=== PATIENT | female | born 1930 | race Caucasian/White ===

== ENCOUNTER 2017-05-02 11:16 | Inpatient (IN) | payer MEDICARE ==
[~2017-05-02] VITALS: Ht 160 cm; Wt 83.1 kg
[2017-05-02] VITALS (10 sets, daily range): BP systolic 96–134; BP diastolic 46–79
[2017-05-02] MEDS ORDERED: ONDANSETRON 2MG/ML, 2ML IVPush ONE (12:00)
[2017-05-02] MEDS ORDERED: PANTOPRAZOLE 40 MG IV IVPush ONE (12:00)
[2017-05-02] MEDS ORDERED: SODIUM CHLORIDE FLUSH 10ML SYR IVF ONE (12:00)
[2017-05-02] MEDS ORDERED: PLEASE ENTER HEIGHT AND WEIGHT AND ALLERGIES MC SCH (12:00)
[2017-05-02] MEDS ORDERED: SODIUM CHLORIDE 0.9% 1,000ML IVBOLUS ONE (12:00)
[2017-05-02] MEDS ORDERED: PLEASE ENTER ALLERGIES MC SCH ×2 (12:30)
[2017-05-02 12:33] LABS: ASPARTATE AMINO TRANSFERASE 16 U/L (15-37); BLOOD UREA NITROGEN 49 mg/dL (7-18)
[2017-05-02] MEDS ORDERED: ONDANSETRON 2MG/ML, 2ML ONE (12:34)
[2017-05-02] MEDS ORDERED: PANTOPRAZOLE 40 MG IV ONE ×2 (12:34→14:22)
[2017-05-02 12:51] LABS: IS PT STATUS REG ER OR PRE ER? YES
[2017-05-02 13:16] LABS: WHITE BLOOD COUNT 28.1 x10^3/uL (3.4-10)
[2017-05-02 13:17] LABS: DIFF TOTAL CELLS COUNTED 100 CELL DIFF
[2017-05-02 13:18] LABS: HEMATOCRIT 12.2 % (34.6-47.8); HEMOGLOBIN 3.8 g/dL (11.7-16.4)
[2017-05-02] MEDS ORDERED: LORazepam 2 MG/ML, 1ML IVPush ONE (13:30)
[2017-05-02] MEDS ORDERED: PANTOPRAZOLE 40 MG IV IVPush SCH (13:30)
[2017-05-02 13:36] LABS: ANISOCYTOSIS 1+; VERIFY COUNTS? YES
[2017-05-02 13:37] LABS: HYPOCHROMIA 1+; POLYCHROMASIA 1+
[2017-05-02] MEDS ORDERED: CELE200C PO (14:18)
[2017-05-02] MEDS: PANTOPRAZOLE 80 MG in SODIUM CHLORIDE 0.9% 100 ML IV SCH ×2 (15:21→23:30)
[2017-05-02] MEDS ORDERED: D5%-0.9% NACL 1,000 ML IV SCH (16:30)
[2017-05-02] MEDS ORDERED: LABETALOL 5MG/ML, 20ML IVPush PRN (17:00)
[2017-05-02] MEDS ORDERED: GUAIFENESIN/DM 200-20MG, 10ML UDC PO PRN (17:00)
[2017-05-02] MEDS ORDERED: CEFTRIAXONE PMX 1GM/50ML 50 ML IV SCH (17:00)
[2017-05-02] MEDS ORDERED: ONDANSETRON 2MG/ML, 2ML IVPush PRN (17:00)
[2017-05-02] MEDS ORDERED: ONDANSETRON ODT 4 MG PO PRN (17:00)
[2017-05-02 18:45] LABS: TOTAL IRON BINDING CAPACITY 208 mcg/dL (250-450)
[2017-05-02 20:44] LABS: HEMOGLOBIN 7.5 g/dL (11.7-16.4)
[2017-05-02 20:49] LABS: HEMATOCRIT 22.3 % (34.6-47.8)
[2017-05-02] MEDS: D5%-0.9% NACL 1,000 ML IV SCH (23:54)
[2017-05-03] VITALS (9 sets, daily range): BP systolic 102–129; BP diastolic 60–72
[2017-05-03] MEDS: PANTOPRAZOLE 80 MG in SODIUM CHLORIDE 0.9% 100 ML IV SCH ×2 (01:43→12:29)
[2017-05-03 04:23] LABS: PATH.CAST-FLAG NOT PRESENT; SPERM-FLAG NOT PRESENT; SRC-FLAG NOT PRESENT; XTAL-FLAG NOT PRESENT; YLC-FLAG NOT PRESENT
[2017-05-03 05:36] LABS: WHITE BLOOD COUNT 31.5 x10^3/uL (3.4-10)
[2017-05-03 05:45] LABS: HEMATOCRIT 18.5 % (34.6-47.8); HEMOGLOBIN 6.4 g/dL (11.7-16.4)
[2017-05-03 05:52] LABS: DIFF TOTAL CELLS COUNTED 100 CELL DIFF
[2017-05-03 05:54] LABS: ANISOCYTOSIS 1+; HYPOCHROMIA 1+; POLYCHROMASIA 2+; VERIFY COUNTS? YES
[2017-05-03 05:58] LABS: ASPARTATE AMINO TRANSFERASE 21 U/L (15-37); BLOOD UREA NITROGEN 48 mg/dL (7-18)
[2017-05-03 08:38] LABS: HEMOGLOBIN 7.6 g/dL (11.7-16.4)
[2017-05-03 08:39] LABS: HEMATOCRIT 22.3 % (34.6-47.8)
[2017-05-03] MEDS ORDERED: ERYTHROMYCIN 500 MG in SODIUM CHLORIDE 0.9% 100 ML IV STA (08:42)
[2017-05-03] MEDS ORDERED: FENTANYL PF 100 MCG/2ML ONE ×2 (08:46)
[2017-05-03] MEDS ORDERED: MIDAZOLAM 1 MG/ML, 5ML ONE (08:46)
[2017-05-03] MEDS ORDERED: METOCLOPRAMIDE 5 MG/ML, 2ML IV ONE (09:00)
[2017-05-03] MEDS ORDERED: SUCRALFATE 1 GM TABLET PO SCH (11:00)
[2017-05-03] MEDS: SUCRALFATE 1 GM/10 ML UDC PO SCH ×3 (11:19→21:33)
[2017-05-03] MEDS: D5%-0.9% NACL 1,000 ML IV SCH (12:25)
[2017-05-03] MEDS ORDERED: LORazepam 1MG TABLET PO PRN ×4 (16:00)
[2017-05-03] MEDS ORDERED: POTASSIUM CHLORIDE 20 MEQ, MAGNESIUM SULFATE 1 GM, THIAMINE 100 MG, MVI ADULT 10 ML in ... IV SCH (16:00)
[2017-05-03] MEDS ORDERED: LORazepam 2 MG/ML, 1ML IV PRN ×5 (16:00)
[2017-05-03] MEDS ORDERED: LORazepam 0.5MG TABLET PO PRN (16:00)
[2017-05-03] MEDS ORDERED: CEFTRIAXONE 2 GM in DEXTROSE 5% 50 ML IV SCH (16:00)
[2017-05-03] MEDS ORDERED: D5%-0.9% NACL 1,000 ML IV SCH (16:30)
[2017-05-03 17:12] LABS: HEMATOCRIT 22.4 % (34.6-47.8); HEMOGLOBIN 7.5 g/dL (11.7-16.4)
[2017-05-03] MEDS: CEFTRIAXONE 2 GM in DEXTROSE 5% 50 ML IVPB SCH (17:24)
[2017-05-03] MEDS ORDERED: AMIODARONE 900 MG in DEXTROSE 5% 482 ML IV PRN (23:30)
[2017-05-03] MEDS ORDERED: AMIODARONE 150 MG in DEXTROSE 5% 100 ML IV ONE (23:30)
[2017-05-03 23:39] LABS: HEMOGLOBIN 7.1 g/dL (11.7-16.4)
[2017-05-03 23:41] LABS: HEMATOCRIT 21.3 % (34.6-47.8)
[2017-05-03] MEDS ORDERED: FILTER 0.22 MICRON IV PRN (23:45)
[2017-05-04] MEDS ORDERED: AMIODARONE 150 MG in DEXTROSE 5% 100 ML IV ONE
[2017-05-04] MEDS ORDERED: AMIODARONE 900 MG in DEXTROSE 5% 482 ML IV PRN
[2017-05-04] MEDS: PANTOPRAZOLE 80 MG in SODIUM CHLORIDE 0.9% 100 ML IV SCH (00:27)
[2017-05-04 01:43] VITALS: BP 102/58
[2017-05-04 01:57] VITALS: BP 106/69
[2017-05-04 03:16] VITALS: BP 105/68
[2017-05-04 07:28] LABS: ASPARTATE AMINO TRANSFERASE 25 U/L (15-37); BLOOD UREA NITROGEN 20 mg/dL (7-18)
[2017-05-04 07:30] VITALS: BP 120/72
[2017-05-04 07:57] LABS: HEMOGLOBIN 7.5 g/dL (11.7-16.4); WHITE BLOOD COUNT 19.3 x10^3/uL (3.4-10)
[2017-05-04 08:05] LABS: HEMATOCRIT 21.9 % (34.6-47.8)
[2017-05-04 08:43] LABS: HEMOGLOBIN 7.8 g/dL (11.7-16.4)
[2017-05-04 08:46] LABS: HEMATOCRIT 22.9 % (34.6-47.8)
[2017-05-04] MEDS: SUCRALFATE 1 GM/10 ML UDC PO SCH ×4 (08:50→21:00)
[2017-05-04] MEDS ORDERED: POTASSIUM CHLORIDE 20 MEQ TAB.ER.PRT PO ONE (09:00)
[2017-05-04 13:11] VITALS: BP 113/77
[2017-05-04 16:37] LABS: HEMATOCRIT 25.3 % (34.6-47.8); HEMOGLOBIN 8.5 g/dL (11.7-16.4)
[2017-05-04] MEDS: CEFTRIAXONE 2 GM in DEXTROSE 5% 50 ML IVPB SCH (17:31)
[2017-05-04] MEDS: PANTOPROZOLE 40MG TABLET PO SCH (17:32)
[2017-05-04 19:10] VITALS: BP 146/67
[2017-05-04] MEDS: METOPROLOL TARTRATE 25 MG TABLET PO SCH (19:23)
[2017-05-05 02:29] VITALS: BP 128/73
[2017-05-05] MEDS: METOPROLOL TARTRATE 25 MG TABLET PO SCH ×2 (05:58→17:49)
[2017-05-05] MEDS: SUCRALFATE 1 GM/10 ML UDC PO SCH ×4 (05:58→20:50)
[2017-05-05 08:12] LABS: HEMOGLOBIN 7.4 g/dL (11.7-16.4)
[2017-05-05 08:15] LABS: ASPARTATE AMINO TRANSFERASE 31 U/L (15-37); BLOOD UREA NITROGEN 14 mg/dL (7-18); HEMATOCRIT 21.5 % (34.6-47.8)
[2017-05-05 08:27] VITALS: BP 116/71
[2017-05-05] MEDS: PANTOPROZOLE 40MG TABLET PO SCH ×2 (08:35→16:46)
[2017-05-05 08:50] LABS: DIFF TOTAL CELLS COUNTED 100 CELL DIFF
[2017-05-05 08:52] LABS: VERIFY COUNTS? YES
[2017-05-05 08:53] LABS: ANISOCYTOSIS 1+; POLYCHROMASIA 1+
[2017-05-05] MEDS ORDERED: AMIODARONE 200 MG TABLET PO SCH (09:00)
[2017-05-05 14:55] VITALS: BP 118/68
[2017-05-05] MEDS ORDERED: POTASSIUM CHLORIDE 20 MEQ, MAGNESIUM SULFATE 1 GM, THIAMINE 100 MG, MVI ADULT 10 ML in ... IV SCH (16:00)
[2017-05-05] MEDS: CEFTRIAXONE 2 GM in DEXTROSE 5% 50 ML IVPB SCH (16:36)
[2017-05-05 17:14] LABS: HEMATOCRIT 25.6 % (34.6-47.8); HEMOGLOBIN 8.6 g/dL (11.7-16.4)
[2017-05-05 20:13] VITALS: BP 124/69
[2017-05-06 02:29] VITALS: BP 135/69
[2017-05-06 05:59] LABS: BLOOD UREA NITROGEN 12 mg/dL (7-18)
[2017-05-06 06:04] LABS: ASPARTATE AMINO TRANSFERASE 29 U/L (15-37)
[2017-05-06 06:11] LABS: HEMOGLOBIN 7.2 g/dL (11.7-16.4); WHITE BLOOD COUNT 12.1 x10^3/uL (3.4-10)
[2017-05-06 06:16] LABS: HEMATOCRIT 21.6 % (34.6-47.8)
[2017-05-06] MEDS: METOPROLOL TARTRATE 25 MG TABLET PO SCH ×2 (06:29→18:31)
[2017-05-06 07:18] LABS: DIFF TOTAL CELLS COUNTED 100 CELL DIFF
[2017-05-06 07:35] LABS: ANISOCYTOSIS 1+; POIKILOCYTOSIS 1+; POLYCHROMASIA 2+; VERIFY COUNTS? YES
[2017-05-06 08:06] VITALS: BP 104/63
[2017-05-06] MEDS: SUCRALFATE 1 GM/10 ML UDC PO SCH ×4 (08:16→20:53)
[2017-05-06] MEDS: PANTOPROZOLE 40MG TABLET PO SCH ×2 (08:16→17:01)
[2017-05-06 11:22] LABS: HEMATOCRIT 23.8 % (34.6-47.8)
[2017-05-06] MEDS: FOLIC ACID 1 MG TABLET PO SCH (13:11)
[2017-05-06] MEDS: THIAMINE 100MG TABLET PO SCH (13:12)
[2017-05-06 15:29] VITALS: BP 134/81
[2017-05-06] MEDS: CEFTRIAXONE 2 GM in DEXTROSE 5% 50 ML IVPB SCH (17:01)
[2017-05-06 19:24] VITALS: BP 128/72
[2017-05-07 02:42] VITALS: BP 120/77
[2017-05-07 05:46] LABS: BLOOD UREA NITROGEN 10 mg/dL (7-18)
[2017-05-07 05:50] LABS: HEMOGLOBIN 7.3 g/dL (11.7-16.4); WHITE BLOOD COUNT 9.9 x10^3/uL (3.4-10)
[2017-05-07 05:52] LABS: HEMATOCRIT 21.7 % (34.6-47.8)
[2017-05-07] MEDS: METOPROLOL TARTRATE 25 MG TABLET PO SCH (06:15)
[2017-05-07 06:19] LABS: DIFF TOTAL CELLS COUNTED 100 CELL DIFF
[2017-05-07 06:22] LABS: ANISOCYTOSIS 1+; POLYCHROMASIA 2+
[2017-05-07 06:25] LABS: VERIFY COUNTS? YES
[2017-05-07 07:45] VITALS: BP 106/57
[2017-05-07] MEDS: SUCRALFATE 1 GM/10 ML UDC PO SCH ×2 (09:46→12:37)
[2017-05-07] MEDS: PANTOPROZOLE 40MG TABLET PO SCH (09:46)
[2017-05-07] MEDS: FOLIC ACID 1 MG TABLET PO SCH (09:46)
[2017-05-07] MEDS: THIAMINE 100MG TABLET PO SCH (09:46)
[2017-05-07 12:26] VITALS: BP 124/71
[2017-05-07] MEDS ORDERED: CEFD300C37 PO (15:25)
[2017-05-07] MEDS ORDERED: PANT40TA5 PO (15:25)
[2017-05-07] MEDS ORDERED: FOLI-17 PO (15:25)
[2017-05-07] MEDS ORDERED: THIA100T6 PO (15:25)
[2017-05-07] MEDS ORDERED: SUCR1ORA5 PO (15:25)
[2017-05-07] MEDS ORDERED: METO25TA35 PO (15:25)
== END 2017-05-07 16:46 | disposition home or self-care (01) | DRG 380 ==
LOC: ED 12:29 → EDIP 13:42 → 4EST 15:56
PROVIDERS: ADMIT Hospitalist; ATTEND Hospitalist
PROC: 30233N1 Transfusion of Nonautologous Red Blood Cells into Peripheral Vein, Percutaneous Approach (ICD-10-PCS; 2017-05-02)
PROC: 0DB68ZX Excision of Stomach, Via Natural or Artificial Opening Endoscopic, Diagnostic (ICD-10-PCS; principal; 2017-05-03 10:00)
DX: K22.11 Ulcer of esophagus with bleeding (principal); E43 Unspecified severe protein-calorie malnutrition; J18.9 Pneumonia, unspecified organism; I95.9 Hypotension, unspecified; I48.91 Unspecified atrial fibrillation; K26.4 Chronic or unspecified duodenal ulcer with hemorrhage; D62 Acute posthemorrhagic anemia; K22.2 Esophageal obstruction; F10.10 Alcohol abuse, uncomplicated; K44.9 Diaphragmatic hernia without obstruction or gangrene; M19.90 Unspecified osteoarthritis, unspecified site; Z66 Do not resuscitate; R73.9 Hyperglycemia, unspecified; H35.30 Unspecified macular degeneration; R74.8 Abnormal levels of other serum enzymes; Z86.73 Personal history of transient ischemic attack (TIA), and cerebral infarction without residual deficits; Z79.1 Long term (current) use of non-steroidal anti-inflammatories (NSAID); Z85.3 Personal history of malignant neoplasm of breast; Z86.010 Personal history of colon polyps; Z87.11 Personal history of peptic ulcer disease; Z87.891 Personal history of nicotine dependence; Z90.10 Acquired absence of unspecified breast and nipple; Z68.32 Body mass index [BMI] 32.0-32.9, adult
CPT/HCPCS: 36415; 36430; 71010; 80048; 80053; 81001; 82040; 82607; 82728; 82746; 83540; 83550; 83690; 83735; 84439; 84443; 84484; 85014; 85018; 85025; 85610; 85730; 86677; 86850; 86900; 86923; 87040; 87086; 88305; 93005; 93306; 96374; 96375; 96376; J0696; J2250; J2405; J3010; J3411; J3475; J3480; J7042; C9113; J0282; J2765; J7030; J7060; P9016

== ENCOUNTER → 2017-09-25 | Outpatient (CLI) | payer MEDICARE ==
[~2017-09-25] MED LIST: ACET325T14 PO; ASCO10004 PO; BETA-CAROTENE PO; CALC1CAP8 PO; CEFD300C37 PO; CELE200C PO; FOLI-17 PO; FOLIC ACID PO; GLUC15006 PO; METO25TA35 PO; NAPR220C2 PO; OMEG1CAP6 PO; PANT40TA5 PO; SUCR1ORA5 PO; THIA100T6 PO; VIT1TABL32 PO; VITAMIN B-12 PO; VITAMIN B-6 PO; VITAMIN E PO
[2017-09-25 12:29] LABS: BASOPHILS # (AUTO) 0.02 x10^3/uL (0-0.1); BASOPHILS % (AUTO) 0 % (0-1); EOSINOPHILS # (AUTO) 0.09 x10^3/uL (0-0.4); EOSINOPHILS % (AUTO) 1 % (1-7); LYMPHOCYTES # (AUTO) 1.83 x10^3/uL (1-3.4); LYMPHOCYTES % (AUTO) 27 % (22-44); MD NO; MEAN CORPUSCULAR HGB CONC 32.9 g/dL (32.4-35.8); MEAN CORPUSCULAR VOLUME 94.1 fL (80-100); MEAN PLATELET VOLUME 9.1 fL (7.4-10.4); MONOCYTES % (AUTO) 12 % (2-9); NEUTROPHILS # (AUTO) 4.03 x10^3/uL (1.8-6.8); NEUTROPHILS % (AUTO) 60 % (42-75); PLATELET COUNT 215 x10^3/uL (130-400); RED BLOOD COUNT 3.82 x10^6/uL (3.82-5.3); RED CELL DISTRIBUTION WIDTH 17.7 % (9.6-15.2)
[2017-09-25 12:29] LABS: MICROSCOPIC NOT IND
[2017-09-25 12:31] LABS: CULTURE INDICATED? NO
[2017-09-25 12:38] LABS: PROTHROMBIN TIME 10.3 Seconds (9.6-11.5)
[2017-09-25 12:40] LABS: ANION GAP 6 mmol/L (5-15); CALCIUM 9.3 mg/dL (8.5-10.1); CHLORIDE 103 mmol/L (98-107); CREATININE 0.91 mg/dL (0.55-1.02)
== END | disposition home or self-care (01) ==
LOC: STAR 11:15
PROVIDERS: ATTEND Neurological Surgery
DX: Z01.818 Encounter for other preprocedural examination (principal); M50.30 Other cervical disc degeneration, unspecified cervical region; I51.7 Cardiomegaly; I45.10 Unspecified right bundle-branch block
CPT/HCPCS: 36415; 71046; 72050; 80048; 81003; 85025; 85610; 85730; 93005

== ENCOUNTER 2020-03-03 12:18 | Observation (INO) | payer MEDICARE, OTHER ==
[~2020-03-03] VITALS: Ht 160 cm; Wt 69.4 kg
[~2020-03-03 12:18] MED LIST changes: +ASCO100018 PO; -ASCO10004 PO; +CEPH-368 PO; -PANT40TA5 PO; +PANT40TA6 PO; -THIA100T6 PO; +THIA100T67 PO; +TRAM-47 PO
[2020-03-03] MEDS ORDERED: ASPIRIN 81 MG TABLET CHEW ONE (12:55)
[2020-03-03] MEDS ORDERED: SODIUM CHLORIDE FLUSH 10ML SYR IVF ONE (13:00)
[2020-03-03] MEDS ORDERED: ASPIRIN 81 MG TABLET CHEW PO ONE (13:00)
--- NOTE | 2020-03-03 13:06 | NUR ---
Pt arrives to ed for chest pain that started in left arm but now has radiated to left and central chest. Pt reports painful with movement and inability to lay flat. Pt has prominent murmur. Pt reports she has severe pain but does not want drugs just wants to make sure she is okay. Pt has clear lung sounds and vitals are stable.
[2020-03-03] MEDS ORDERED: TURM1POW PO (13:09)
[2020-03-03] MEDS ORDERED: PANT40TA6 PO (13:09)
[2020-03-03 13:10] LABS: MEAN CORPUSCULAR HGB CONC 32.1 g/dL (32.4-35.8); MEAN CORPUSCULAR VOLUME 109.2 fL (80-100); MEAN PLATELET VOLUME 8.4 fL (7.4-10.4); PLATELET COUNT 487 x10^3/uL (130-400); RED CELL DISTRIBUTION WIDTH 17.1 % (9.6-15.2)
[2020-03-03 13:21] LABS: ALBUMIN 2.6 g/dL (3.4-5.0); ANION GAP 5 mmol/L (5-15); CALCIUM 9.7 mg/dL (8.5-10.1); CHLORIDE 104 mmol/L (98-107); CREATININE 0.74 mg/dL (0.55-1.02)
[2020-03-03 13:26] LABS: ALKALINE PHOSPHATASE 102 U/L (45-117); TOTAL PROTEIN 9.5 g/dL (6.4-8.2); TROPONIN I < 0.015 ng/mL (0.000-0.045)
[2020-03-03 13:33] LABS: ALANINE AMINOTRANSFERASE 15 U/L (12-78); BILIRUBIN,TOTAL 0.5 mg/dL (0.2-1.0)
[2020-03-03 13:41] LABS: BASOPHILS # (AUTO) 0.03 x10^3/uL (0-0.1); BASOPHILS % (AUTO) 0 % (0-1); EOSINOPHILS # (AUTO) 0.01 x10^3/uL (0-0.4); EOSINOPHILS % (AUTO) 0 % (1-7); LYMPHOCYTES # (AUTO) 2.06 x10^3/uL (1-3.4); LYMPHOCYTES % (AUTO) 24 % (22-44); MD SCAN; MONOCYTES # (AUTO) 1.49 x10^3/uL (0.2-0.8); MONOCYTES % (AUTO) 18 % (2-9); NEUTROPHILS # (AUTO) 4.92 x10^3/uL (1.8-6.8); NEUTROPHILS % (AUTO) 58 % (42-75)
--- NOTE | 2020-03-03 13:52 | NUR ---
Pt was given h2o and chart up for recheck.
--- NOTE | 2020-03-03 14:30 | NUR ---
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
[2020-03-03] MEDS ORDERED: MORPHINE SULFATE 4 MG/ML, 1ML IV PRN (16:30)
[2020-03-03] MEDS ORDERED: ONDANSETRON 2MG/ML, 2ML IV PRN (16:30)
[2020-03-03] MEDS ORDERED: NITROGLYCERIN 0.4 MG BOTTLE (25 TABS) SL PRN (16:30)
[2020-03-03] MEDS ORDERED: NITROGLYCERIN SINGLE TAB 0.4 MG SL PRN (16:30)
[2020-03-03] MEDS ORDERED: NITROGLYCERIN 0.4 MG/SPRAY SL PRN (16:30)
[2020-03-03] MEDS ORDERED: OMNIPAQUE 350 MG/ML, 75ML BOTTLE ONE (16:51)
[2020-03-03] MEDS: ENOXAPARIN 40 MG/0.4 ML SQ SCH (17:37)
[2020-03-03] MEDS: METHOCARBAMOL 500 MG TABLET PO SCH ×2 (17:38→21:25)
[2020-03-03 17:47] VITALS: BP 162/82
[2020-03-03 19:20] LABS: TROPONIN I < 0.015 ng/mL (0.000-0.045)
[2020-03-03 19:43] VITALS: BP 147/83
[2020-03-03] MEDS ORDERED: TEMPLATE NON-FORMULARY MED. (Glucosamine Hcl** 1,500 MG) PO SCH (21:00)
[2020-03-03] MEDS ORDERED: MULTIVITAMINS/MINERALS TABLET PO SCH (21:00)
[2020-03-03] MEDS: SODIUM CHLORIDE FLUSH 10ML SYR IVF SCH (21:25)
[2020-03-03] MEDS: METOPROLOL TARTRATE 25 MG TAB PO SCH (21:25)
[2020-03-03] MEDS: OMEGA-3/FISH OIL CAPSULE PO SCH (21:25)
[2020-03-03] MEDS: ACETAMINOPHEN 650 MG/20.3 ML UDC PO PRN (21:38)
[2020-03-04 00:47] VITALS: BP 149/87
[2020-03-04] MEDS ORDERED: GUAIFENESIN ER 600 MG TABLET PO PRN (01:00)
[2020-03-04 01:56] LABS: TROPONIN I 0.019 ng/mL (0.000-0.045)
[2020-03-04] MEDS: METHOCARBAMOL 500 MG TABLET PO SCH ×3 (05:32→16:39)
[2020-03-04 05:52] LABS: CHOL/HDL RATIO 9.2; LDL/HDL RATIO 5.8 (0.5-3.0)
[2020-03-04] MEDS ORDERED: ASPIRIN 325 MG TABLET EC PO SCH (06:00)
[2020-03-04 06:49] VITALS: BP 149/81
[2020-03-04] MEDS: OMEGA-3/FISH OIL CAPSULE PO SCH (08:20)
[2020-03-04] MEDS: METOPROLOL TARTRATE 25 MG TAB PO SCH (08:20)
[2020-03-04] MEDS: SODIUM CHLORIDE FLUSH 10ML SYR IVF SCH (08:21)
[2020-03-04] MEDS: ACETAMINOPHEN 650 MG/20.3 ML UDC PO PRN (08:32)
[2020-03-04] MEDS ORDERED: REGADENOSON 0.4 MG/5 ML SYRINGE ONE (08:44)
[2020-03-04] MEDS ORDERED: PANTOPRAZOLE 40MG TABLET PO SCH (09:00)
[2020-03-04] MEDS ORDERED: ASCORBIC ACID 500 MG TABLET PO SCH (09:00)
[2020-03-04] MEDS ORDERED: CALCIUM/VITAMIN D3 250-125 TABLET PO SCH (09:00)
[2020-03-04 12:39] VITALS: BP 151/73
[2020-03-04] MEDS ORDERED: GABAPENTIN 100 MG CAPSULE PO PRN (14:00)
[2020-03-04] MEDS ORDERED: APAP/CODEINE 300/30MG TABLET PO PRN (16:00)
[2020-03-04] MEDS ORDERED: FUROSEMIDE 20 MG/2 ML IV ONE (16:00)
[2020-03-04] MEDS ORDERED: METH500T7 PO (16:17)
[2020-03-04] MEDS ORDERED: METO25TA35 PO (16:17)
[2020-03-04] MEDS ORDERED: ASPI81TA45 PO (16:17)
[2020-03-04] MEDS ORDERED: ATOR20TA37 PO (16:17)
[2020-03-04] MEDS ORDERED: ACET1TAB64 PO (16:21)
[2020-03-04] MEDS: ENOXAPARIN 40 MG/0.4 ML SQ SCH (17:30)
[2020-03-04] MEDS ORDERED: METOPROLOL TARTRATE 25 MG TAB PO SCH (21:00)
[2020-03-04] MEDS ORDERED: ATORVASTATIN 20 MG TABLET PO SCH (21:00)
== END 2020-03-04 18:51 | disposition home or self-care (01) ==
LOC: ED 14:04 → EDIP 15:19 → INTOOBSV 15:19 → 5SO 17:11
PROVIDERS: ADMIT Family Medicine; ATTEND Family Medicine
DX: R07.89 Other chest pain (principal); J98.11 Atelectasis; I11.0 Hypertensive heart disease with heart failure; I50.33 Acute on chronic diastolic (congestive) heart failure; R01.1 Cardiac murmur, unspecified; D53.9 Nutritional anemia, unspecified; D68.69 Other thrombophilia; R74.0 Nonspecific elevation of levels of transaminase and lactic acid dehydrogenase [LDH]; E87.1 Hypo-osmolality and hyponatremia; R79.89 Other specified abnormal findings of blood chemistry; I48.91 Unspecified atrial fibrillation; M54.12 Radiculopathy, cervical region; M19.90 Unspecified osteoarthritis, unspecified site; G89.29 Other chronic pain; M54.9 Dorsalgia, unspecified; F29 Unspecified psychosis not due to a substance or known physiological condition; I27.20 Pulmonary hypertension, unspecified; M81.0 Age-related osteoporosis without current pathological fracture; E78.2 Mixed hyperlipidemia; I35.0 Nonrheumatic aortic (valve) stenosis; I25.9 Chronic ischemic heart disease, unspecified; Z98.1 Arthrodesis status; Z87.11 Personal history of peptic ulcer disease; Z79.899 Other long term (current) drug therapy; Z87.891 Personal history of nicotine dependence; Z85.3 Personal history of malignant neoplasm of breast; Z90.12 Acquired absence of left breast and nipple
CPT/HCPCS: 36415; 71045; 71275; 78452; 80053; 80061; 83880; 84484; 85025; 93005; 93017; 93306; 96372; 96374; 99285; A9502; G0378; J1650; J1940; J2785; Q9967

== ENCOUNTER → 2020-05-08 | Outpatient (CLI) | payer MEDICARE ==
[~2020-05-08] MED LIST changes: +ACET1TAB64 PO; +ASPI81TA45 PO; +ATOR20TA37 PO; +METH500T7 PO; +TURM1POW PO
== END | disposition home or self-care (01) ==
LOC: RAD 14:39
PROVIDERS: ATTEND Physician Assistant Medical
DX: M79.662 Pain in left lower leg (principal); I82.409 Acute embolism and thrombosis of unspecified deep veins of unspecified lower extremity; M79.661 Pain in right lower leg; R60.0 Localized edema
CPT/HCPCS: 93970

== ENCOUNTER 2020-05-20 11:39 | Outpatient (CLI) | payer MEDICARE ==
[~2020-05-20 11:39] MED LIST changes: -FOLI-17 PO; +FOLI1TAB32 PO; +METH-639 PO; -METH500T7 PO
[2020-05-20 12:08] LABS: ANION GAP 4 mmol/L (5-15); CHLORIDE 103 mmol/L (98-107); CREATININE 1.09 mg/dL (0.55-1.02)
== END 2020-05-20 23:59 | disposition home or self-care (01) ==
LOC: LAB 11:39
PROVIDERS: ATTEND Internal Medicine
DX: I48.0 Paroxysmal atrial fibrillation (principal); D64.9 Anemia, unspecified; I35.0 Nonrheumatic aortic (valve) stenosis; I87.2 Venous insufficiency (chronic) (peripheral)
CPT/HCPCS: 36415; 80048